=== PATIENT | male | born 1960 | race Caucasian/White ===

== ENCOUNTER 2017-08-26 09:47 | Emergency (ER) | payer BC, OTHER ==
--- NOTE | 2017-08-26 10:42 | RAD REPORT ---
EXAM DESCRIPTION: CT - Head Brain Wo Cont - 08/26/2017 10:32 am CLINICAL HISTORY: DIZZINESS Drowsiness COMPARISON: No comparisons TECHNIQUE: All CT scans are performed using dose optimization technique as appropriate and may inclu de automated exposure control or mA/KV adjustment according to patient size. FINDINGS: No intracranial hemorrhage, hydrocephalus or extra-axial fluid collection.No areas of brai n edema or evidence of midline shift. The paranasal sinuses and mastoids are clear. The calvarium is intact. IMPRESSION: No acute intracranial abnormality.
--- NOTE | 2017-08-26 11:25 | RAD REPORT ---
EXAM DESCRIPTION: MRI - Brain Wo Cont - 08/26/2017 11:13 am CLINICAL HISTORY: DIZZINESS Drowsiness COMPARISON: Head Brain Wo Cont dated 08/26/2017 TECHNIQUE: Multi-sequence, multiplanar MR imaging of the brain was performed without contrast. FINDINGS: No intracranial hemorrhage, hydrocephalus or extra-axial fluid collections. No edema or sh ift of midline structures. No findings to suspect brain mass. DWI is negative for acute CVA. Midline structures are normally formed. Mastoid air cells and paranasal sinuses are clear. IMPRESSION: No acute or concerning intracranial abnormalities.
[2017-08-26 11:39] LABS: Absolute Lymphocytes (CBC) 3.1 K/uL (0.7-4.9); Absolute Neutrophil 3.7 K/uL (1.8-8.0); Basophils % 0.6 % (0-1.3); Eosinophils % 1.7 % (0-4.4); Hematocrit 46.8 % (39.6-49.0); Lymphocytes % 39.2 % (15.3-44.8); MCV 89.9 fL (80-100); MPV 7.8 fL (7.6-11.3); Monocytes % 12.4 % (3.3-12.3); RBC Red Blood Cell Count 5.21 M/uL (4.33-5.43)
[2017-08-26 11:58] LABS: Magnesium 2.1 mg/dL (1.8-2.4)
[2017-08-26] MEDS ORDERED: LISINOPRIL 5 MG TAB ONE (12:16)
--- NOTE | 2017-08-26 12:29 | EDPHYS ---
Physician Documentation [facility] Name: Mauro Marks Age: 57 yrs Sex: Male : 1960 Arrival Date: 08/26/2017 Time: 09:52 Bed 20 Private MD: Sharlene Stinson K ED Physician Shane Bright HPI: 08/26 10:52 This 57 yrs old Male presents to ER via Ambulatory with complaints of Blood rn Pressure Problem, Dizziness. 10:52 The patient presents with dizziness. Onset: The symptoms/episode began/occurred this rn morning. Modifying factors: The symptoms are alleviated by nothing, the symptoms are aggravated by nothing. Severity of symptoms: At their worst the symptoms were mild in the emergency department the symptoms have improved. The patient has experienced similar episodes in the past. Reports at work, had trouble processing parallel parking, went inside, felt lightheaded and dizzy, improved now, BP was high, states this has happened before and BP was high, not taking his medication "for awhile". . Historical: - Allergies: 10:01 No Known Allergies; aj - Home Meds: 10:01 venlafaxine 100 mg oral tab [Active]; Unknown cholesterol med [Active]; fenofibrate 150 aj mg oral cap [Active]; - PMHx: 10:01 Depression; Hyperlipidemia; aj - Immunization history:: Adult Immunizations up to date. - Social history:: Smoking status: Patient/guardian denies using tobacco. - Ebola Screening: : Patient negative for fever greater than or equal to 101.5 degrees Fahrenheit, and additional compatible Ebola Virus Disease symptoms Patient denies exposure to infectious person Patient denies travel to an Ebola-affected area in the 21 days before illness onset No symptoms or risks identified at this time. - Family history:: not pertinent. - Hospitalizations: : No recent hospitalization is reported. ROS: 10:52 Constitutional: Negative for fever, chills, and weight loss, Eyes: Negative for injury, rn pain, redness, and discharge, Neck: Negative for injury, pain, and swelling, Cardiovascular: Negative for chest pain, palpitations, and edema, Respiratory: Negative for shortness of breath, cough, wheezing, and pleuritic chest pain, Abdomen/GI: Negative for abdominal pain, nausea, vomiting, diarrhea, and constipation, MS/Extremity: Negative for injury and deformity, Skin: Negative for injury, rash, and discoloration, Neuro: Negative for weakness, numbness, tingling, and seizure. Exam: 10:52 Constitutional: This is a well developed, well nourished patient who is awake, alert, rn and in no acute distress. Head/Face: Normocephalic, atraumatic. Eyes: Pupils equal round and reactive to light, extra-ocular motions intact. Lids and lashes normal. Conjunctiva and sclera are non-icteric and not injected. Cornea within normal limits. Periorbital areas with no swelling, redness, or edema. Cardiovascular: Regular rate and rhythm with a normal S1 and S2. No gallops, murmurs, or rubs. Normal PMI, no JVD. No pulse deficits. Respiratory: Lungs have equal breath sounds bilaterally, clear to auscultation and percussion. No rales, rhonchi or wheezes noted. No increased work of breathing, no retractions or nasal flaring. Abdomen/GI: Soft, non-tender, with normal bowel sounds. No distension or tympany. No guarding or rebound. No evidence of tenderness throughout. MS/ Extremity: Pulses equal, no cyanosis. Neurovascular intact. Full, normal range of motion. Equal circumference. Neuro: Awake and alert, GCS 15, oriented to person, place, time, and situation. Cranial nerves II-XII grossly intact. Motor strength 5/5 in all extremities. Sensory grossly intact. Cerebellar exam normal. Normal gait. 12:27 ECG was reviewed by the Attending Physician. rn Vital Signs: 10:01 BP 140 / 80; Pulse 77; Resp 17; Temp 97.5; Pulse Ox 98% on R/A; Weight 127.01 kg; aj Height 5 ft. 10 in. (177.80 cm); 11:30 BP 138 / 84; Pulse 66; Resp 16; Pulse Ox 98% on R/A; ph 12:24 BP 135 / 81; Pulse 62; Resp 18; Temp 98.0; Pulse Ox 99% on R/A; ph 10:01 Body Mass Index 40.18 (127.01 kg, 177.80 cm) aj MDM: 10:02 Patient medically screened. rn 12:27 Data reviewed: vital signs, nurses notes, lab test result(s), EKG, radiologic studies, rn CT scan, MRI, and as a result, I will discharge patient. Counseling: I had a detailed discussion with the patient and/or guardian regarding: the historical points, exam findings, and any diagnostic results supporting the discharge/admit diagnosis, lab results, radiology results, the need for outpatient follow up, to return to the emergency department if symptoms worsen or persist or if there are any questions or concerns that arise at home. Response to treatment: the patient's symptoms have markedly improved after treatment, the patient's condition has returned to base line, the patient is now symptom free, and as a result, I will discharge patient. Special discussion: I discussed with the patient/guardian in detail that at this point there is no indication for admission to the hospital. It is understood, however, that if the symptoms persist or worsen the patient needs to return immediately for re-evaluation. 12:29 ED course: states has had lisinopril in past, will prescribe. 08/26 10:24 Order name: Basic Metabolic Panel; Complete Time: 12:08/26 10:24 Order name: CBC with Diff; Complete Time: 12:08/26 10:24 Order name: CT Head Brain wo Cont; Complete Time: 11:08/26 10:24 Order name: Magnesium; Complete Time: 12:08/26 10:24 Order name: Troponin (emerg Dept Use Only); Complete Time: 12:08/26 10:25 Order name: MRI - Brain Wo Cont; Complete Time: 11:08/26 10:24 Order name: EKG; Complete Time: 10:08/26 10:24 Order name: Cardiac monitoring; Complete Time: :08/26 10:24 Order name: EKG - Nurse/Tech; Complete Time: :08/26 10:24 Order name: IV Saline Lock; Complete Time: :08/26 10:24 Order name: Labs collected and sent; Complete Time: :08/26 10:24 Order name: O2 Per Protocol; Complete Time: :08/26 10:24 Order name: O2 Sat Monitoring; Complete Time: 10:41 rn EC:27 Rate is 66 beats/min. Rhythm is regular. QRS [place] is Normal. NH interval is normal. QRS rn interval is normal. QT interval is normal. No Q waves. T waves are Normal. No ST changes noted. Clinical impression: Normal ECG. Interpreted by me. Administered Medications: 12:16 Drug: Lisinopril 5 mg Route: PO; ph 12:24 Follow up: Response: No adverse reaction ph 12:24 Not Given (Other Intervention Used): NS 0.9% 500 ml IV at bolus once ph Disposition: 08/26/17 12:28 Discharged to Home. Impression: Hypertension. - Condition is Stable. - Discharge Instructions: Hypertension. - Prescriptions for Lisinopril 5 mg Oral Tablet - take 1 tablet by ORAL route once daily; 30 tablet. - Medication Reconciliation Form, Thank You Letter, Antibiotic Education, Prescription Opioid Use form. - Follow up: Private Physician; When: As needed; Reason: Recheck today's complaints, Re-evaluation by your physician. - Problem is new. - Symptoms have improved. Signatures: Dispatcher [employer] EDThais Isaac RN RN aj Nieto, Roman, MD MD rn Hall, Patricia, RN RN ph Corrections: (The following items were deleted from the chart) 12:52 12:28 08/26/2017 12:28 Discharged to Home. Impression: Hypertension. Condition is ph Stable. Forms are Medication Reconciliation Form, Thank You Letter, Antibiotic Education, Prescription Opioid Use. Follow up: Private Physician; When: As needed; Reason: Recheck today's complaints, Re-evaluation by your physician. Problem is new. Symptoms have improved. rn
--- NOTE | 2017-08-26 12:29 | ER ---
Nurse's Notes [facility] Name: Mauro Marks Age: 57 yrs Sex: Male : 1960 Arrival Date: 08/26/2017 Time: 09:52 Bed 20 Private MD: Sharlene Stinson K Diagnosis: Hypertension Presentation: 08/26 09:58 Presenting complaint: Patient states: Reports confusion when trying to parallel park aj this AM. Then reports episode of dizziness when walking into work. Ambulated in to hospital with steady gait. Alert and oriented with clear speech. Transition of care: patient was not received from another setting of care. Onset of symptoms was August 26, 2017. Risk Assessment: Do you want to hurt yourself or someone else? Patient reports no desire to harm self or others. Initial Sepsis Screen: Does the patient meet any 2 criteria? No. Patient's initial sepsis screen is negative. Does the patient have a suspected source of infection? No. Patient's initial sepsis screen is negative. Care prior to arrival: None. 09:58 Method Of Arrival: Ambulatory 09:58 Acuity: KEELY 3 aj Triage Assessment: 10:01 General: Appears in no apparent distress. comfortable, Behavior is calm, cooperative, aj appropriate for age. Pain: Denies pain. Neuro: Level of Consciousness is awake, alert, obeys commands, Oriented to person, place, time, situation, Appropriate for age Shake Backboard Notcher are equal bilaterally Moves all extremities. Full function Gait is steady, Speech is normal, Facial symmetry appears normal, Reports dizziness. Respiratory: Airway is patent Respiratory effort is even, unlabored, Respiratory pattern is regular, symmetrical. Derm: Skin is intact, is healthy with good turgor, Skin is pink, warm \T\ dry. normal. Historical: - Allergies: 10:01 No Known Allergies; aj - Home Meds: 10:01 venlafaxine 100 mg oral tab [Active]; Unknown cholesterol med [Active]; fenofibrate 150 aj mg oral cap [Active]; - PMHx: 10:01 Depression; Hyperlipidemia; aj - Immunization history:: Adult Immunizations up to date. - Social history:: Smoking status: Patient/guardian denies using tobacco. - Ebola Screening: : Patient negative for fever greater than or equal to 101.5 degrees Fahrenheit, and additional compatible Ebola Virus Disease symptoms Patient denies exposure to infectious person Patient denies travel to an Ebola-affected area in the 21 days before illness onset No symptoms or risks identified at this time. - Family history:: not pertinent. - Hospitalizations: : No recent hospitalization is reported. Screenin:03 Abuse screen: Denies threats or abuse. Denies injuries from another. Nutritional ph screening: No deficits noted. Tuberculosis screening: No symptoms or risk factors identified. Fall Risk None identified. Assessment: 10:35 General: Appears in no apparent distress. comfortable, obese, well groomed, Behavior is ph calm, cooperative, appropriate for age, Denies fever, feeling ill. Pain: Denies pain. Neuro: Level of Consciousness is awake, alert, obeys commands, Oriented to person, place, time, situation, Reports dizziness, intermittent headaches. Cardiovascular: Capillary refill < 3 seconds in bilateral fingers Patient's skin is warm and dry. Respiratory: Airway is patent Respiratory effort is even, unlabored, Respiratory pattern is regular, symmetrical. Respiratory: Denies cough, shortness of breath. GI: No signs and/or symptoms were reported involving the gastrointestinal system. Derm: Skin is intact, is healthy with good turgor, Skin is pink, warm \T\ dry. Musculoskeletal: Circulation, motion, and sensation intact. Range of motion: intact in all extremities. 11:30 Reassessment: Patient appears in no apparent distress at this time. Patient and/or ph family updated on plan of care and expected duration. Pain level reassessed. Patient is alert, oriented x 3, equal unlabored respirations, skin warm/dry/pink. Pt resting quietly, VSS, awaiting lab and radiology results, SO at bedside. 12:10 Reassessment: Patient appears in no apparent distress at this time. Patient and/or ph family updated on plan of care and expected duration. Pain level reassessed. Patient is alert, oriented x 3, equal unlabored respirations, skin warm/dry/pink. ERP at bedside to speak w/ pt and SO about results, awaiting d/c. Vital Signs: 10:01 BP 140 / 80; Pulse 77; Resp 17; Temp 97.5; Pulse Ox 98% on R/A; Weight 127.01 kg; aj Height 5 ft. 10 in. (177.80 cm); 11:30 BP 138 / 84; Pulse 66; Resp 16; Pulse Ox 98% on R/A; ph 12:24 BP 135 / 81; Pulse 62; Resp 18; Temp 98.0; Pulse Ox 99% on R/A; ph 10:01 Body Mass Index 40.18 (127.01 kg, 177.80 cm) ED Course: 09:52 Patient arrived in ED. sb2 09:53 Sharlene Stinson MD is Private Physician. sb2 09:56 Becky Reed RN is Primary Nurse. ph 09:59 Triage completed. aj 10:01 Arm band placed on left wrist. Patient placed in an exam room. aj 10:02 Shane Bright MD is Attending Physician. rn 10:03 Patient has correct armband on for positive identification. Placed in gown. Bed in low ph position. Call light in reach. Side rails up X 1. laminating machine tender on. Pulse ox on. NIBP on. Warm blanket given. 10:[address] via wheelchair. sw 10:32 CT Head Brain wo Cont In Process Unspecified. EDMS 10:50 Patient moved to MRI via wheelchair. em2 11:13 MRI - Brain Wo Cont In Process Unspecified. EDMS 11:30 MRI completed. Patient moved back from MRI. em2 11:35 Inserted saline lock: 20 gauge in right antecubital area, using aseptic technique. Blood collected. 12:25 No provider procedures requiring assistance completed. IV discontinued, intact, ph bleeding controlled, No redness/swelling at site. Pressure dressing applied. Administered Medications: 12:16 Drug: Lisinopril 5 mg Route: PO; ph 12:24 Follow up: Response: No adverse reaction ph 12:24 Not Given (Other Intervention Used): NS 0.9% 500 ml IV at bolus once ph Outcome: 12:26 Discharged to home ambulatory, with significant other. ph 12:26 Condition: good 12:28 Discharge ordered by . rn 12:52 Patient left the ED. ph 12:52 Discharge instructions given to patient, significant other, Instructed on discharge ph instructions, follow up and referral plans. medication usage, Demonstrated understanding of instructions, follow-up care, medications, Prescriptions given X 1. Signatures: Dispatcher [employer] EDMS Thais De Jesus RN RN Shane Bright MD MD rn Smirch, Shelby, RN RN ss Montes, Enrique em2 Pawel Reedia, RN RN ph Tommie, Mei Marjorie, Aline 2
--- NOTE | 2017-08-26 21:36 | EKG ---
Test Date: 2017-08-26 Test Time: 12:19:29 Asset Protection Lead: BURAK MEASUREMENT RESULTS: Intervals: Rate: 66 FL: 132 QRSD: 106 QT: 396 QTc: 415 [place]: P: 18 FL: 132 QRS: 26 T: 38 INTERPRETIVE STATEMENTS: Normal sinus rhythm Normal ECG No previous ECG available for comparison Electronically Signed On 08-26-17 21:36:27 CDT by Mahesh Art
== END 2017-08-26 12:52 | disposition home or self-care (01) ==
LOC: ER 09:47
DX: I10 Essential (primary) hypertension (principal); E78.5 Hyperlipidemia, unspecified; F32.9 Major depressive disorder, single episode, unspecified
CPT/HCPCS: 36415; 70450; 70551; 80048; 83735; 84484; 85025; 93005; 99285

== ENCOUNTER 2020-07-17 21:38 | Emergency (ER) | payer BC ==
[2020-07-17] MEDS ORDERED: TETANUS & DIPHTHERIA TOX,ADULT 0.5 ML VIAL ONE (23:49)
[2020-07-17] MEDS ORDERED: TETRACAINE HCL 0.5% 4ML OPTH ONE (23:49)
[2020-07-17] MEDS ORDERED: FLUORESCEIN SODIUM 1 MG/WRAP ONE (23:49)
--- NOTE | 2020-07-17 23:59 | EDPHYS ---
Physician Documentation [facility] Name: Mauro Marks Age: 60 yrs Sex: Male : 1960 Arrival Date: 07/17/2020 Time: 21:43 Bed 28 Private MD: ED Physician Gustavo Rojas HPI: 07/17 23:29 This 60 yrs old Male presents to ER via Ambulatory with complaints of Eye pm1 Pain, Redness of Eye. 23:29 The patient is experiencing foreign body sensation, to the right eye, caused by pm1 possibly saw dust. Onset: The symptoms/episode began/occurred today. Duration: the symptoms are continuous. Alleviated by eye flush. Associated signs and symptoms: Pertinent positives: None. Pertinent negatives: None. Patient wears glasses. Severity of symptoms: in the emergency department the symptoms have improved. The patient has not recently seen a physician. Patient was working on a fan. When he took a shower he felt dirt or saw dust on the top of head. It may have washed into his eye because that's when the pain started. Historical: - Allergies: 22:28 No Known Allergies; bb - Home Meds: 22:28 venlafaxine 150 mg oral cp24 1 cap once daily [Active]; lisinopril 10 mg Oral tab 1 tab bb once daily [Active]; rosuvastatin 10 mg oral tab 1 tab once daily [Active]; - PMHx: 22:28 Depression; Hyperlipidemia; Hypertension; bb - PSHx: 22:28 pterygium removal; wisdom teeth; bb - Immunization history:: Adult Immunizations up to date. - Social history:: Smoking status: Patient denies any tobacco usage or history of. ROS: 23:29 Constitutional: Negative for fever, chills, and weight loss. pm1 23:29 ENT: Negative for injury, pain, and discharge, Cardiovascular: Negative for chest pain, palpitations, and edema, Respiratory: Negative for shortness of breath, cough, wheezing, and pleuritic chest pain. 23:29 Eyes: Positive for foreign body sensation, pain, of the right eye. 23:29 All other systems are negative. Exam: 23:29 Constitutional: This is a well developed, well nourished patient who is awake, alert, pm1 and in no acute distress. Head/Face: Normocephalic, atraumatic. 23:29 Skin: Warm, dry with normal turgor. Normal color with no rashes, no lesions, and no evidence of cellulitis. MS/ Extremity: Pulses equal, no cyanosis. Neurovascular intact. Full, normal range of motion. 23:29 Eyes: Periorbital structures: appear normal, Pupils: no acute changes, Extraocular movements: no acute changes, Conjunctiva: injected, in the right eye, Corneas: abrasion, that is small, on the right, at 12 o'clock, foreign body, is not appreciated, a fluorescein strip employed to appreciate the findings, Lids and lashes: appear normal. 23:29 Cardiovascular: Rate: normal, Rhythm: regular, Pulses: no pulse deficits are appreciated. 23:29 Respiratory: Exam negative for acute changes, respiratory distress, shortness of breath, the patient does not display signs of respiratory distress. 23:29 Neuro: Orientation: is normal, Mentation: is normal, Motor: is normal, moves all fours. Vital Signs: 22:24 BP 114 / 70; Pulse 68; Resp 16 S; Temp 98.2(O); Pulse Ox 99% on R/A; Weight 115.67 kg bb (R); Height 5 ft. 10 in. (177.80 cm) (R); Pain 8/10; 22:24 Body Mass Index 36.59 (115.67 kg, 177.80 cm) bb Visual Acuity: 23:50 Left Eye Visual acuity 20/20, Pupil size 3 mm, Normal, Reactive To Accomodation; Right zb Eye Visual acuity 20/30, Pupil size 3 mm, Normal, Reactive To Accomodation; Both Eyes Visual acuity 20/20; Without Lenses; MDM: 23:15 Patient medically screened. pm1 23:56 Data reviewed: vital signs. Data interpreted: Pulse oximetry: on room air is 99 %. pm1 Interpretation: normal. 23:56 Counseling: I had a detailed discussion with the patient and/or guardian regarding: the pm1 historical points, exam findings, and any diagnostic results supporting the discharge/admit diagnosis, the need for outpatient follow up, an opthalmologist, to return to the emergency department if symptoms worsen or persist or if there are any questions or concerns that arise at home. 07/17 23:18 Order name: Visual Acuity; Complete Time: 00:13 pm1 07/17 23:18 Order name: Eye Tray; Complete Time: 00:07 pm1 07/17 23:18 Order name: Fluoresene Opth strip; Complete Time: 00:07 pm1 Administered Medications: 12:50 Drug: Tetanus-Diphtheria Toxoid Adult 0.5 ml {Water Project Manager: [employer]. Exp: zb 07/23/2021. Lot #: [id number]. } Route: IM; Site: left deltoid; 07/18 00:06 Follow up: Response: No adverse reaction 07/17 23:55 Drug: Tetracaine Drops 0.5 % 1 drops Route: Ophthalmic; Site: right eye; 07/18 00:12 Drug: Gentamicin Drops 0.3 % 2 drops Route: Ophthalmic; Site: right eye; 00:12 Follow up: Response: Medication administered at discharge. Disposition: 07/17/20 23:58 Discharged to Home. Impression: Injury of conjunctiva and corneal abrasion without foreign body, right eye. - Condition is Stable. - Discharge Instructions: Corneal Abrasion. - Prescriptions for Gentamicin 0.3 % Ophthalmic Drops - instill 1 drop by OPHTHALMIC route every 4 hours for 7 days; 1 bottle. - Medication Reconciliation Form, Thank You Letter, Antibiotic Education, Prescription Opioid Use form. - Follow up: Emergency Department; When: As needed; Reason: Worsening of condition. Follow up: Magno Hawkins MD; When: 1 - 2 days; Reason: Recheck today's complaints, Continuance of care, Re-evaluation by your physician. - Problem is new. - Symptoms have improved. Signatures: Stephanie Patel RN RN bb Marinas, Patrick, NP ACCOUNT SUPERVISOR pm1 Jasmine Ly RN RN zb Corrections: (The following items were deleted from the chart) 00:13 07/17 23:58 07/17/2020 23:58 Discharged to Home. Impression: Injury of conjunctiva and zb corneal abrasion without foreign body, right eye. Condition is Stable. Forms are Medication Reconciliation Form, Thank You Letter, Antibiotic Education, Prescription Opioid Use. Follow up: Emergency Department; When: As needed; Reason: Worsening of condition. Follow up: Magno Hawkins; When: 1 - 2 days; Reason: Recheck today's complaints, Continuance of care, Re-evaluation by your physician. Problem is new. Symptoms have improved. pm1
--- NOTE | 2020-07-17 23:59 | ER ---
Nurse's Notes [facility] Name: Mauro Marks Age: 60 yrs Sex: Male : 1960 Arrival Date: 07/17/2020 Time: 21:43 Bed 28 Private MD: Diagnosis: Injury of conjunctiva and corneal abrasion without foreign body, right eye Presentation: 07/17 22:24 Chief complaint: Patient states: he started having a foreign body feeling, with redness bb and pain since last night, was working in the yard yesterday. Coronavirus screen: At this time, the client does not indicate any symptoms associated with coronavirus-19. Ebola Screen: No symptoms or risks identified at this time. Mechanism of Injury: No Mechanism of Injury. The patient denies any loss of vision. Initial Sepsis Screen: Does the patient meet any 2 criteria? No. Patient's initial sepsis screen is negative. Does the patient have a suspected source of infection? No. Patient's initial sepsis screen is negative. Risk Assessment: Do you want to hurt yourself or someone else? Patient reports no desire to harm self or others. Onset of symptoms was July 16, 2020. 22:24 Method Of Arrival: Ambulatory bb 22:24 Acuity: KEELY 4 bb Triage Assessment: 22:28 General: Appears in no apparent distress. Behavior is calm, cooperative. Pain: bb Complains of pain in right eye Pain currently is 8 out of 10 on a pain scale. EENT: right eye sclera reddened. Reports pain in right eye. Neuro: Level of Consciousness is awake, alert, obeys commands, Oriented to person, place, time, situation. Cardiovascular: Capillary refill < 3 seconds Patient's skin is warm and dry. Respiratory: Respiratory effort is even, unlabored, Respiratory pattern is regular. GI: No signs and/or symptoms were reported involving the gastrointestinal system. Derm: Skin is pink, warm \T\ dry. Musculoskeletal: Circulation, motion, and sensation intact. Historical: - Allergies: 22: No Known Allergies; bb - Home Meds: 22: venlafaxine 150 mg oral cp24 1 cap once daily [Active]; lisinopril 10 mg Oral tab 1 tab bb once daily [Active]; rosuvastatin 10 mg oral tab 1 tab once daily [Active]; - PMHx: 22:28 Depression; Hyperlipidemia; Hypertension; bb - PSHx: 22:28 pterygium removal; wisdom teeth; bb - Immunization history:: Adult Immunizations up to date. - Social history:: Smoking status: Patient denies any tobacco usage or history of. Screenin:50 Fall Risk None identified. zb 07/18 00:03 Abuse screen: Denies threats or abuse. Denies injuries from another. Nutritional zb screening: No deficits noted. Tuberculosis screening: No symptoms or risk factors identified. Assessment: 07/17 23:50 General: Appears in no apparent distress. uncomfortable, Behavior is calm, cooperative. zb Pain: Complains of pain in right eye Pain currently is 4 out of 10 on a pain scale. at worst was 8 out of 10 on a pain scale. Quality of pain is described as aching. Neuro: Level of Consciousness is awake, alert, obeys commands, Oriented to person, place, time, situation, Reports headache Denies blurred vision. Cardiovascular: Patient's skin is warm and dry. Respiratory: Airway is patent Respiratory effort is even, unlabored, Respiratory pattern is regular, symmetrical. EENT: Eyes are tearing on right eye Sclera/Cornea are reddened in right eye. Derm: Skin is intact, is healthy with good turgor, Skin is normal. Musculoskeletal: Circulation, motion, and sensation intact. Range of motion: intact in all extremities. Vital Signs: 22:24 BP 114 / 70; Pulse 68; Resp 16 S; Temp 98.2(O); Pulse Ox 99% on R/A; Weight 115.67 kg bb (R); Height 5 ft. 10 in. (177.80 cm) (R); Pain 8/10; 22:24 Body Mass Index 36.59 (115.67 kg, 177.80 cm) bb Visual Acuity: 23:50 Left Eye Visual acuity 20/20, Pupil size 3 mm, Normal, Reactive To Accomodation; Right zb Eye Visual acuity 20/30, Pupil size 3 mm, Normal, Reactive To Accomodation; Both Eyes Visual acuity 20/20; Without Lenses; ED Course: 21:43 Patient arrived in ED. cf2 22:26 Triage completed. bb 22:28 Arm band placed on Patient placed in waiting room, Patient notified of wait time. bb Family accompanied patient. 22:52 Doug Price NP is PHCP. pm1 22:52 Gustavo Rojas MD is Attending Physician. pm1 23:34 Jasmine Ly RN is Primary Nurse. zb 23:50 No provider procedures requiring assistance completed. Patient did not have IV access zb during this emergency room visit. 23:58 Magno Hawkins MD is Referral Physician. pm1 07/18 00:05 Patient has correct armband on for positive identification. Bed in low position. Call zb light in reach. Adult w/ patient. Door closed. Administered Medications: 07/17 12:50 Drug: Tetanus-Diphtheria Toxoid Adult 0.5 ml {[employer]chlor[employer] Supervisor: [employer]. Exp: zb 07/23/2021. Lot #: [id number]. } Route: IM; Site: left deltoid; 07/18 00:06 Follow up: Response: No adverse reaction zb 07/17 23:55 Drug: Tetracaine Drops 0.5 % 1 drops Route: Ophthalmic; Site: right eye; zb 07/18 00:12 Drug: Gentamicin Drops 0.3 % 2 drops Route: Ophthalmic; Site: right eye; zb 00:12 Follow up: Response: Medication administered at discharge. zb Outcome: 07/17 23:58 Discharge ordered by . pm1 07/18 00:13 Discharged to home ambulatory, with family. zb Condition: stable Discharge instructions given to patient, family, Instructed on discharge instructions, follow up and referral plans. medication usage, Demonstrated understanding of instructions, follow-up care, medications, Prescriptions given X 1. 00:13 Patient left the ED. zb Signatures: Stephanie Patel RN RN bb Doug Price NP ELECTRICAL ELECTRONICS TECHNICIAN pm1 Lawrence Benitez cf2 Jasmine Ly RN RN zb Corrections: (The following items were deleted from the chart) 00:04 07/17 11:50 General: Appears in no apparent distress. uncomfortable, Behavior is calm, zb cooperative, zb 07/18 00:04 07/17 11:50 Pain: Complains of pain in right eye Pain currently is 4 out of 10 on a zb pain scale. at worst was 8 out of 10 on a pain scale. Quality of pain is described as aching, zb 07/19 99:07/17 11:50 Neuro: Level of Consciousness is awake, alert, obeys commands, Oriented to zb person, place, time, situation, Reports headache Denies blurred vision 07/19 99:07/17 11:50 Cardiovascular: Patient's skin is warm and dry. zb 07/19 99:07/17 11:50 EENT: Eyes are tearing on right eye Sclera/Cornea are reddened in right eye zb 07/19 99:07/17 11:50 Derm: Skin is intact, is healthy with good turgor, Skin is normal, zb 07/19 99:07/17 11:50 Musculoskeletal: Circulation, motion, and sensation intact. Range of zb motion: intact in all extremities, 07/19 99:07/17 11:50 Respiratory: Airway is patent Respiratory effort is even, unlabored, zb Respiratory pattern is regular, symmetrical, zb
[2020-07-18] MEDS ORDERED: FLUORESCEIN SODIUM 1 MG/WRAP ONE
[2020-07-18] MEDS ORDERED: TETRACAINE HCL 0.5% 4ML OPTH ONE
[2020-07-18] MEDS ORDERED: GENTAMICIN 0.3% OPTH DROP 5ML ONE (00:29)
[2020-07-18 00:39] VITALS: BP 114/70; TEMP 98.2; O2SAT 99
== END 2020-07-18 00:13 | disposition home or self-care (01) ==
LOC: ER 21:38
DX: S05.01XA Injury of conjunctiva and corneal abrasion without foreign body, right eye, initial encounter (principal); Z23 Encounter for immunization; F32.9 Major depressive disorder, single episode, unspecified; E78.5 Hyperlipidemia, unspecified; I10 Essential (primary) hypertension; X58.XXXA Exposure to other specified factors, initial encounter
CPT/HCPCS: 90471; 90714; 99283